=== PATIENT | female | born 1990 | race American Indian/Alaskan Native ===

== ENCOUNTER 2016-10-29 18:38 | Emergency (ER) | payer MEDICAID ==
[2016-10-29 18:45] VITALS: TEMP 98; O2SAT 100
--- NOTE | 2016-10-29 20:07 | ED PDOC ---
Lower Extremity Pain/Injury Time Seen by Provider: 10/29/16 18:52 Chief Complaint (Nursing): Lower Extremity Problem/Injury Chief Complaint (Provider): Left Knee Pain History Per: Patient History/Exam Limitations: no limitations Onset/Duration Of Symptoms: Hrs Current Symptoms Are (Timing): Still Present Severity: Severe Additional History Per: Patient Additional Complaint(s): Alexandro Renteria is a 26 year old female that presents to the ED with a chief complaint of left knee pain. Patient reports that while walking today, she felt a "pop" in her left knee, as well as has been walking with a limp due to a meniscal tear in her left knee she obtained three months ago. She reports she currently has a torn ACL as well. Of Note: Patient has ACL repair surgery 11 years ago. Past Medical History Reviewed: Historical Data, Nursing Documentation, Vital Signs Vital Signs: Last Vital Signs Temp 98.0 F 10/29/16 18:42 Pulse 132 H 10/29/16 18:42 Resp 16 10/29/16 18:42 BP 157/83 H 10/29/16 18:42 Pulse Ox 100 10/29/16 18:42 - Medical History PMH: Bipolar Disorder, Depression, Migraine Denies: HIV, HTN, Sexually Transmitted Disease - Family History Family History: States: Unknown Family Hx - Immunization History Hx Tetanus Toxoid Vaccination: No Hx Influenza Vaccination: No Hx Pneumococcal Vaccination: No - Home Medications Home Medications: Ambulatory Orders Medication Instructions Recorded FLUoxetine [Prozac] 10 mg PO DAILY #30 cap 02/03/15 QUEtiapine [SEROquel] 50 mg PO HS #30 tab 02/03/15 Famotidine [Pepcid] 20 mg PO DAILY PRN #6 tab 05/09/15 Cyclobenzaprine [Cyclobenzaprine 10 mg PO Q8 PRN #9 tab 06/11/16 HCl] traMADol [Ultram] 50 mg PO TID PRN #12 tab 06/11/16 traMADol [Ultram] 50 mg PO TID PRN #15 tab 07/11/16 traMADol [Ultram] 50 mg PO Q6H PRN #10 tab 10/29/16 - Allergies Allergies/Adverse Reactions: Allergies Allergy/AdvReac Type Severity Reaction Status Date / Time peanut Allergy ANAPHYLAXIS Verified 10/29/16 18:42 Review of Systems Musculoskeletal: Positive for: Leg Pain (left knee pain) Physical Exam - Reviewed Nursing Documentation Reviewed: Yes Vital Signs Reviewed: Yes - Physical Exam Appears: Positive for: Non-toxic, No Acute Distress Head Exam: Positive for: ATRAUMATIC, NORMOCEPHALIC Skin: Positive for: Normal Color, Warm Eye Exam: Positive for: Normal appearance, EOMI, PERRL Extremity: Positive for: Other (Patient walks with a limp due to pain in left knee). Negative for: Normal ROM (decreased ROM due to pain in left knee) Neurologic/Psych: Positive for: Alert, Oriented - ECG O2 Sat by Pulse Oximetry: 100 (RA) Pulse Ox Interpretation: Normal Medical Decision Making Medical Decision Making: Impression: Possible Meniscal Tear and ACL Tear in Left Knee Plan: * X-Ray Left Knee * Ultram 50 mg PO * Urine Preg * Reevaluation * Pt reports feeling better on re-evalution. Knee x-ray: No acute fracture or dislocation, (+) screw in tibia Scribe Attestation: Documented by Susy Ocampo, acting as a scribe for Melanie Tarango PA-C. Provider Scribe Attestation: All medical record entries made by the Scribe were at my direction and personally dictated by me. I have reviewed the chart and agree that the record accurately reflects my personal performance of the history, physical exam, medical decision making, and the department course for this patient. I have also personally directed, reviewed, and agree with the discharge instructions and disposition. Disposition - Clinical Impression Clinical Impression: Knee pain - Patient ED Disposition Is Patient to be Admitted: No Counseled Patient/Family Regarding: Diagnosis, Need For Followup, Rx Given - Disposition Referrals: [facility] [place] [Outside] Disposition: Routine/Home Disposition Time: 20:44 Condition: GOOD Prescriptions: traMADol [Ultram] 50 mg PO Q6H PRN #10 tab PRN Reason: Pain Instructions: Knee Pain (ED)
[2016-10-29 20:56] VITALS: BP 117/76; PULSE 88; RESP 18
--- NOTE | 2016-10-30 10:31 | RAD ---
PROCEDURE: Left Knee Radiographs. HISTORY: Pain. COMPARISON: None. FINDINGS: BONES: No evidence of acute displaced fracture nor dislocation. Re- demonstrated are postoperative changes related to the ACL repair. Threaded interference screw again noted within the medial aspect proximal tibial metaphysis of within the distal aspect of tibial bone tunnel. Hardware appears intact without evidence loosening or infection. JOINTS: Normal. No osteoarthritis. JOINT EFFUSION: No significant joint effusion. OTHER FINDINGS: None. IMPRESSION: No evidence of acute displaced fracture nor dislocation. Re- demonstrated are postoperative changes related to the ACL repair. Threaded interference screw again noted within the medial aspect proximal tibial metaphysis of within the distal aspect of tibial bone tunnel. Hardware appears intact without evidence loosening or infection.
== END 2016-10-29 21:01 | disposition home or self-care (01) ==
LOC: H.ER 18:38
DX: M25.562 Pain in left knee (principal); F31.9 Bipolar disorder, unspecified

== ENCOUNTER 2017-02-17 12:36 | Emergency (ER) | payer MEDICAID ==
[2017-02-17] MEDS ORDERED: Naproxen 500 MG TAB PO ONE ×2 (13:08→13:28)
--- NOTE | 2017-02-17 13:15 | ED PDOC ---
Lower Extremity Pain/Injury Time Seen by Provider: 02/17/17 12:45 Chief Complaint (Nursing): Lower Extremity Problem/Injury Chief Complaint (Provider): Left knee pain History Per: Patient History/Exam Limitations: no limitations Onset/Duration Of Symptoms: Days (3 weeks) Current Symptoms Are (Timing): Still Present Severity: Moderate Additional History Per: Patient Additional Complaint(s): The patient is a 26yo female, past medical history of multiple surgeries on left knee for torn meniscus, presents to the ED for evaluation of left knee pain for the past three weeks. Patient reports she is concerned that she may have torn her meniscus again. Patient denies any recent injury or trauma to her knee, also denies any numbness, weakness or tingling. Patient offers no additional medical complaints. Past Medical History Reviewed: Historical Data - Medical History PMH: Bipolar Disorder, Depression, Migraine Denies: HIV, HTN, Sexually Transmitted Disease - Surgical History Other surgeries: meniscus and ACL repairs or left knee - Family History Family History: States: Unknown Family Hx - Immunization History Hx Tetanus Toxoid Vaccination: No Hx Influenza Vaccination: No Hx Pneumococcal Vaccination: No - Home Medications Home Medications: Ambulatory Orders Medication Instructions Recorded FLUoxetine [Prozac] 10 mg PO DAILY #30 cap 02/03/15 QUEtiapine [SEROquel] 50 mg PO HS #30 tab 02/03/15 Famotidine [Pepcid] 20 mg PO DAILY PRN #6 tab 05/09/15 Cyclobenzaprine [Cyclobenzaprine 10 mg PO Q8 PRN #9 tab 06/11/16 HCl] traMADol [Ultram] 50 mg PO TID PRN #12 tab 06/11/16 traMADol [Ultram] 50 mg PO TID PRN #15 tab 07/11/16 traMADol [Ultram] 50 mg PO Q6H PRN #10 tab 10/29/16 Naproxen [Naprosyn] 500 mg PO BID PRN #30 tab 02/17/17 - Allergies Allergies/Adverse Reactions: Allergies Allergy/AdvReac Type Severity Reaction Status Date / Time peanut Allergy ANAPHYLAXIS Verified 10/29/16 18:42 Review of Systems Musculoskeletal: Positive for: Leg Pain (left knee pain) Neurological: Negative for: Weakness, Numbness Physical Exam - Reviewed Nursing Documentation Reviewed: Yes Vital Signs Reviewed: Yes - Physical Exam Appears: Positive for: Non-toxic, No Acute Distress Head Exam: Positive for: ATRAUMATIC, NORMAL INSPECTION, NORMOCEPHALIC Cardiovascular/Chest: Positive for: Regular Rate, Rhythm Respiratory: Negative for: Accessory Muscle Use, Respiratory Distress Extremity: Positive for: Normal ROM, Other (left knee with previous surgical scars, no crepidus noted.). Negative for: Tenderness, Deformity, Swelling Neurologic/Psych: Positive for: Alert, Oriented. Negative for: Motor/Sensory Deficits - Radiology X-Ray: Interpreted by Me (Knee x-ray) X-Ray Interpretation: Other (hardware in place; nothing acute) - Progress ED Course And Treament: Knee immobilized in immobilizer and crutches provided Pt. instructed to f/u with ortho for further evaluation. Pt. states she does have an orthopedist in [place] and she will f/u with him. Medical Decision Making Medical Decision Making: Time: 1245 Impression: Left knee pain Plan: -- XR left knee -- Naproxen 500mg PO Reassess Scribe Attestation: Documented by Maria G Avina acting as a scribe for SERG Guy Provider Attestation: All medical record entries made by the Scribe were at my direction and personally dictated by me. I have reviewed the chart and agree that the record accurately reflects my personal performance of the history, physical exam, medical decision making, and the department course for this patient. I have also personally directed, reviewed, and agree with the discharge instructions and disposition. Disposition - Clinical Impression Clinical Impression: Knee injury - Patient ED Disposition Is Patient to be Admitted: No - Disposition Referrals: [facility] [Outside] Disposition: Routine/Home Disposition Time: 13:54 Condition: STABLE Prescriptions: Naproxen [Naprosyn] 500 mg PO BID PRN #30 tab PRN Reason: Pain Instructions: Knee Immobilizer (ED), Crutch Instructions (ED) Forms: [employer] (Upper Sorbian) Print Language: MACEDONIAN
--- NOTE | 2017-02-17 15:42 | RAD ---
HISTORY: trauma COMPARISON: No prior FINDINGS: BONES: Normal. No fracture. Status post ACL repair. JOINTS: Normal. No osteoarthritis. SOFT TISSUE: Normal. OTHER FINDINGS: None . IMPRESSION: No fracture.
== END 2017-02-17 14:45 | disposition home or self-care (01) ==
LOC: H.ER 12:36
DX: S89.92XA Unspecified injury of left lower leg, initial encounter (principal)

== ENCOUNTER 2017-08-29 14:57 | Emergency (ER) | payer MEDICAID ==
[2017-08-29 15:11] VITALS: BP 136/83; PULSE 99; RESP 16; TEMP 98.3; O2SAT 100
--- NOTE | 2017-08-29 16:11 | ED PDOC ---
HPI: Skin/Bite Injury Time Seen by Provider: 08/29/17 15:20 Chief Complaint (Nursing): Abnormal Skin Integrity Past Medical History Vital Signs: Last Vital Signs Temp 98.3 F 08/29/17 15:07 Pulse 99 H 08/29/17 15:07 Resp 16 08/29/17 15:07 BP 136/83 08/29/17 15:07 Pulse Ox 100 08/29/17 15:07 - Medical History PMH: Bipolar Disorder, Depression, Migraine Denies: HIV, HTN, Sexually Transmitted Disease - Family History Family History: States: Unknown Family Hx - Immunization History Hx Tetanus Toxoid Vaccination: No Hx Influenza Vaccination: No Hx Pneumococcal Vaccination: No - Home Medications Home Medications: Ambulatory Orders Medication Instructions Recorded FLUoxetine [Prozac] 10 mg PO DAILY #30 cap 02/03/15 QUEtiapine [SEROquel] 50 mg PO HS #30 tab 02/03/15 Famotidine [Pepcid] 20 mg PO DAILY PRN #6 tab 05/09/15 Cyclobenzaprine [Cyclobenzaprine 10 mg PO Q8 PRN #9 tab 06/11/16 HCl] traMADol [Ultram] 50 mg PO TID PRN #12 tab 06/11/16 traMADol [Ultram] 50 mg PO TID PRN #15 tab 07/11/16 traMADol [Ultram] 50 mg PO Q6H PRN #10 tab 10/29/16 Naproxen [Naprosyn] 500 mg PO BID PRN #30 tab 02/17/17 Cetirizine HCl [Zyrtec] 10 mg PO DAILY #30 capsule 08/29/17 Hydrocortisone Kayley 0.2% Cr 1 applic TOP BID #1 tube 08/29/17 [Westcort] - Allergies Allergies/Adverse Reactions: Allergies Allergy/AdvReac Type Severity Reaction Status Date / Time peanut Allergy ANAPHYLAXIS Verified 10/29/16 18:42 - ECG O2 Sat by Pulse Oximetry: 100 (RA) Pulse Ox Interpretation: Normal Medical Decision Making Medical Decision Making: Time: 1520 Initial impression: Rash Initial plan: --Skin Examination Time: 1610 --Patient is medically clear for discharge and will be given Rx for Zyrtec 10 mg and westcort 0.2%. Advised to follow up with Dr. Rodger Horn MD in 1-2 days without fail. Advised to take medication as prescribed. Return to the emergency room at any time for any new or worsening symptoms. Patient states he/she fully agrees with and understands discharge instructions. States that he/she agrees with the plan and disposition. Verbalized and repeated discharge instructions and plan. I have given the patient opportunity to ask any additional questions. Clinical Impression: Contact dermatitis Scribe Attestation: Documented by Dina Baptiste, acting as a scribe for Kori Parra PA-C Provider Scribe Attestation: All medical record entries made by the Scribe were at my direction and personally dictated by me. I have reviewed the chart and agree that the record accurately reflects my personal performance of the history, physical exam, medical decision making, and the department course for this patient. I have also personally directed, reviewed, and agree with the discharge instructions and disposition. Disposition - Clinical Impression Clinical Impression: Contact dermatitis Counseled Patient/Family Regarding: Diagnosis, Need For Followup, Rx Given - Disposition Referrals: Rodger Horn MD [Staff Provider] - Disposition Time: 16:10 Condition: STABLE Additional Instructions: Thank you for letting us take care of you today. You were treated for contact dermatitis. The emergency medical care you received today was directed at your acute symptoms. If you were prescribed any medication, please fill it and take as directed. It may take several days for your symptoms to resolve. Return to the Emergency Department if your symptoms worsen, do not improve, or if you have any other problems. Please call one of the physicians/clinics you have been referred to that are listed on the Patient Visit Information form that is included in your discharge packet. Bring any paperwork you were given at discharge with you along with any medications you are taking to your follow up visit. Our treatment cannot replace ongoing medical care by a primary care provider (PCP) outside of the emergency department. Thank you for allowing the [facility] team to be part of your care today. Prescriptions: Cetirizine HCl [Zyrtec] 10 mg PO DAILY #30 capsule Hydrocortisone Kayley 0.2% Cr [Westcort] 1 applic TOP BID #1 tube Instructions: Contact Dermatitis (DC) Forms: [employer] (Mongolian), [facility] ED School/Work Excuse
--- NOTE | 2017-08-29 16:17 | ED PDOC ---
HPI: Allergic Reaction Time Seen by Provider: 08/29/17 15:20 Chief Complaint (Nursing): Abnormal Skin Integrity Chief Complaint (Provider): Abnormal Skin Integrity History Per: Patient Additional Complaint(s): 27 year old female presents to the emergency department with a complaint of a itchy rash to the left wrist and lower abdomen region. Reports she used an brady wrap and when she removed it she noticed the rash. Around the same time patient also ate shrimp although she has eaten shrimp in the past and knows she is not allergic. Denies fever, taking medication to improve symptoms, new medications, lotions, detergents, or food intake. Past Medical History Reviewed: Historical Data, Nursing Documentation, Vital Signs Vital Signs: Last Vital Signs Temp 98.3 F 08/29/17 15:07 Pulse 99 H 08/29/17 15:07 Resp 16 08/29/17 15:07 BP 136/83 08/29/17 15:07 Pulse Ox 100 08/29/17 15:07 - Medical History PMH: Bipolar Disorder, Depression, Migraine Denies: HIV, HTN, Sexually Transmitted Disease - Family History Family History: States: Unknown Family Hx - Immunization History Hx Tetanus Toxoid Vaccination: No Hx Influenza Vaccination: No Hx Pneumococcal Vaccination: No - Home Medications Home Medications: Ambulatory Orders Medication Instructions Recorded FLUoxetine [Prozac] 10 mg PO DAILY #30 cap 02/03/15 QUEtiapine [SEROquel] 50 mg PO HS #30 tab 02/03/15 Famotidine [Pepcid] 20 mg PO DAILY PRN #6 tab 05/09/15 Cyclobenzaprine [Cyclobenzaprine 10 mg PO Q8 PRN #9 tab 06/11/16 HCl] traMADol [Ultram] 50 mg PO TID PRN #12 tab 06/11/16 traMADol [Ultram] 50 mg PO TID PRN #15 tab 07/11/16 traMADol [Ultram] 50 mg PO Q6H PRN #10 tab 10/29/16 Naproxen [Naprosyn] 500 mg PO BID PRN #30 tab 02/17/17 Cetirizine HCl [Zyrtec] 10 mg PO DAILY #30 capsule 08/29/17 Hydrocortisone Kayley 0.2% Cr 1 applic TOP BID #1 tube 08/29/17 [Westcort] - Allergies Allergies/Adverse Reactions: Allergies Allergy/AdvReac Type Severity Reaction Status Date / Time peanut Allergy ANAPHYLAXIS Verified 10/29/16 18:42 Review of Systems ROS Statement: Except As Marked, All Systems Reviewed And Found Negative (As per HPI, otherwise negative) Constitutional: Negative for: Fever, Other (No new medications, lotions, detergents, or food intake. ) Skin: Positive for: Rash (Itchy rash noted to the left wrist and lower abdomen) Physical Exam - Reviewed Nursing Documentation Reviewed: Yes Vital Signs Reviewed: Yes - Physical Exam Appears: Positive for: No Acute Distress Head Exam: Positive for: NORMAL INSPECTION Skin: Positive for: Rash (Erythematous urticarial like rash to the dorsal left wrist and lower abdomen) Eye Exam: Negative for: Conjunctival injection, Other (chemosis) ENT: Positive for: Normal ENT Inspection (Mucous membranes moist), Pharynx Is ( Clear). Negative for: Sinus Pain/Drainage, Tonsillar Exudate, Other (Tongue or lip swelling) Cardiovascular/Chest: Positive for: Regular Rate, Rhythm. Negative for: Gallop , Murmur Respiratory: Positive for: Normal Breath Sounds (equally bilaterally). Negative for: Rales, Rhonchi, Stridor, Wheezing, Respiratory Distress Gastrointestinal/Abdominal: Positive for: Normal Exam, Soft. Negative for: Tenderness, Distended, Other (HSM) Lymphatic: Positive for: Normal Exam. Negative for: Adenopathy Neurologic/Psych: Positive for: Alert (Awake), Oriented (x3) - ECG O2 Sat by Pulse Oximetry: 100 (RA) Pulse Ox Interpretation: Normal Disposition - Clinical Impression Clinical Impression: Contact dermatitis - Patient ED Disposition Is Patient to be Admitted: No Counseled Patient/Family Regarding: Diagnosis, Need For Followup, Rx Given - Disposition Referrals: Rodger Horn MD [Staff Provider] - Disposition Time: 16:00 Condition: STABLE Additional Instructions: Thank you for letting us take care of you today. You were treated for contact dermatitis. The emergency medical care you received today was directed at your acute symptoms. If you were prescribed any medication, please fill it and take as directed. It may take several days for your symptoms to resolve. Return to the Emergency Department if your symptoms worsen, do not improve, or if you have any other problems. Please call one of the physicians/clinics you have been referred to that are listed on the Patient Visit Information form that is included in your discharge packet. Bring any paperwork you were given at discharge with you along with any medications you are taking to your follow up visit. Our treatment cannot replace ongoing medical care by a primary care provider (PCP) outside of the emergency department. Thank you for allowing the [facility] team to be part of your care today. Prescriptions: Cetirizine HCl [Zyrtec] 10 mg PO DAILY #30 capsule Hydrocortisone Kayley 0.2% Cr [Westcort] 1 applic TOP BID #1 tube Instructions: Contact Dermatitis (DC) Forms: [employer] (Azerbaijani), [facility] ED School/Work Excuse Medical Decision Making Medical Decision Making: Time: 1520 Initial impression: Rash, consider contact dermatitis Initial plan: --Skin Examination Time: 1610 --Patient is medically clear for discharge and will be given Rx for Zyrtec 10 mg and westcort 0.2%. Advised to follow up with Dr. Rodger Horn MD in 1-2 days without fail. Advised to take medication as prescribed. Return to the emergency room at any time for any new or worsening symptoms. Patient states she fully agrees with and understands discharge instructions. States that she agrees with the plan and disposition. Verbalized and repeated discharge instructions and plan. I have given the patient opportunity to ask any additional questions. Clinical Impression: Contact dermatitis Scribe Attestation: Documented by Dina Baptiste, acting as a scribe for Kori Parra PA-C Provider Scribe Attestation: All medical record entries made by the Scribe were at my direction and personally dictated by me. I have reviewed the chart and agree that the record accurately reflects my personal performance of the history, physical exam, medical decision making, and the department course for this patient. I have also personally directed, reviewed, and agree with the discharge instructions and disposition.
== END 2017-08-29 16:07 | disposition home or self-care (01) ==
LOC: H.ER 14:57
DX: L25.9 Unspecified contact dermatitis, unspecified cause (principal); F31.9 Bipolar disorder, unspecified

== ENCOUNTER 2017-11-14 21:02 | Emergency (ER) | payer MEDICAID ==
--- NOTE | 2017-11-14 22:21 | ED PDOC ---
HPI: Back Time Seen by Provider: 11/14/17 22:16 Chief Complaint (Nursing): Back Pain Chief Complaint (Provider): back pain History Per: Patient Additional Complaint(s): 27-year-old female presents with lower back pain 1 month status post helping her mother take a shower. Patient states he mother is obese and she helped get her into a shower about a month ago and injured her back in the process. Patient tried taking gabapentin for pain but this did not help. She denies any radiation of pain to lower extremities and denies any bowel or bladder dysfunction. Past Medical History Reviewed: Historical Data, Nursing Documentation, Vital Signs Vital Signs: Last Vital Signs Temp 99.3 F 11/14/17 21:40 Pulse 116 H 11/14/17 21:40 Resp 19 11/14/17 21:40 BP 158/115 H 11/14/17 21:40 Pulse Ox 98 11/14/17 21:40 - Medical History PMH: Bipolar Disorder, Depression, Migraine - Surgical History Other surgeries: Left knee surgery x 2 - Family History Family History: States: No Known Family Hx - Living Arrangements Living Arrangements: With Family - Social History Current smoker - smoking cessation education provided: No Alcohol: None Drugs: Denies - Home Medications Home Medications: Ambulatory Orders Medication Instructions Recorded FLUoxetine [Prozac] 10 mg PO DAILY #30 cap 02/03/15 QUEtiapine [SEROquel] 50 mg PO HS #30 tab 02/03/15 Famotidine [Pepcid] 20 mg PO DAILY PRN #6 tab 05/09/15 Cyclobenzaprine [Cyclobenzaprine 10 mg PO Q8 PRN #9 tab 06/11/16 HCl] traMADol [Ultram] 50 mg PO TID PRN #12 tab 06/11/16 traMADol [Ultram] 50 mg PO TID PRN #15 tab 07/11/16 traMADol [Ultram] 50 mg PO Q6H PRN #10 tab 10/29/16 Naproxen [Naprosyn] 500 mg PO BID PRN #30 tab 02/17/17 Cetirizine HCl [Zyrtec] 10 mg PO DAILY #30 capsule 08/29/17 Hydrocortisone Kayley 0.2% Cr 1 applic TOP BID #1 tube 08/29/17 [Westcort] Cyclobenzaprine [Cyclobenzaprine 10 mg PO TID PRN #20 tab 11/14/17 HCl] Naproxen [Naprosyn] 500 mg PO BID #20 tab 11/14/17 - Allergies Allergies/Adverse Reactions: Allergies Allergy/AdvReac Type Severity Reaction Status Date / Time peanut Allergy ANAPHYLAXIS Verified 10/29/16 18:42 Review of Systems ROS Statement: Except As Marked, All Systems Reviewed And Found Negative Constitutional: Negative for: Fever Cardiovascular: Negative for: Chest Pain Respiratory: Negative for: Cough Gastrointestinal: Negative for: Nausea, Vomiting Musculoskeletal: Positive for: Back Pain (s/p heavy lifting 1 month ago) Physical Exam - Reviewed Nursing Documentation Reviewed: Yes Vital Signs Reviewed: Yes - Physical Exam Appears: Positive for: Well, Non-toxic, No Acute Distress Skin: Positive for: Normal Color. Negative for: Rash Eye Exam: Positive for: Normal appearance Neck: Positive for: Normal Cardiovascular/Chest: Positive for: Regular Rate, Rhythm Respiratory: Positive for: Normal Breath Sounds. Negative for: Respiratory Distress Back: Positive for: Vertebral Tenderness (Midline tenderness along the lumbar spine with no step-off, negative bilateral straight leg raise). Negative for: L CVA Tenderness, R CVA Tenderness Extremity: Positive for: Normal ROM Neurologic/Psych: Positive for: Alert, Oriented, Gait (steady) - Laboratory Results Urine POC: Negative - ECG O2 Sat by Pulse Oximetry: 98 Pulse Ox Interpretation: Normal - Other Rad LS Spine x-ray X-Ray: Interpreted by Me, Viewed By Me X-Ray Interpretation: no fx, no dis Medical Decision Making Medical Decision Makin27 y/o female with low back injury Plan: Urine test IM toradol X-ray LS spine Patient is aware of x-ray results, all questions answered. Patient reports improvement pain after Toradol was given. Rx given for naprosyn and flexeril. Patient has rx for outpatient LS Spine MRI provided by PMD and she advised to obtain MRI and follow up with PMD. Disposition - Clinical Impression Clinical Impression: Back strain - Patient ED Disposition Is Patient to be Admitted: No Counseled Patient/Family Regarding: Studies Performed, Diagnosis, Need For Followup, Rx Given - Disposition Referrals: [facility] [Outside] Disposition: Routine/Home Disposition Time: 23:12 Condition: STABLE Additional Instructions: Take prescription meds as directed as needed for pain. Rest and avoid heavy lifting. Obtain MRI as soon as possible and follow up with primary doctor. Prescriptions: Cyclobenzaprine [Cyclobenzaprine HCl] 10 mg PO TID PRN #20 tab PRN Reason: Muscle Spasm Naproxen [Naprosyn] 500 mg PO BID #20 tab Instructions: Low Back Pain in Adults, Muscle Strain (DC), Back Exercises Forms: [facility] (Hungarian)
[2017-11-14 23:10] VITALS: BP 145/94; PULSE 100; RESP 20; TEMP 98.6
[2017-11-14 23:15] VITALS: O2SAT 98
--- NOTE | 2017-11-15 09:57 | RAD ---
PROCEDURE: Radiographs of the Lumbar Spine. HISTORY: trauma COMPARISON: No prior. FINDINGS: BONES: Straightened lumbar curvature. No fracture or spondylolisthesis. Vertebral body heights are within normal limits throughout. No destructive bony lesion appreciable. DISC SPACES: Mild disc height loss at L4-5 indicates degenerative disease. OTHER FINDINGS: None. IMPRESSION: Limited degenerative disc changes L4-5. Straightened lumbar curvature without fracture or spondylolisthesis apparent.
== END 2017-11-15 00:02 | disposition home or self-care (01) ==
LOC: H.ER 21:02
DX: S39.012A Strain of muscle, fascia and tendon of lower back, initial encounter (principal); X50.9XXA Other and unspecified overexertion or strenuous movements or postures, initial encounter; Y92.89 Other specified places as the place of occurrence of the external cause
CPT/HCPCS: 72100; 81025; 96372; 99283; J1885

== ENCOUNTER 2018-01-08 23:22 | Inpatient (IN) | payer MEDICAID ==
[2018-01-08 23:44] VITALS: BMI 28.3
--- NOTE | 2018-01-08 23:44 | ED PDOC ---
HPI: Psych/Substance Abuse Time Seen by Provider: 01/08/18 23:43 Chief Complaint (Nursing): Psychiatric Evaluation Chief Complaint (Provider): crisis eval History Per: Patient Additional Complaint(s): 27-year-old female with history of bipolar disorder presents to emergency department for crisis evaluation. Patient states she has been off her medications for several months and presents stating she feels suicidal. Patient does not remember the names of the meds she used to take. Her plan is to either slit her wrists or overdose on meds. Patient denies any recent cutting and denies any recent overdoses. Patient offers no acute medical complaints. PMD: none Past Medical History Reviewed: Historical Data, Nursing Documentation, Vital Signs - Medical History PMH: Bipolar Disorder, Depression - Surgical History Other surgeries: Left knee surgery - Family History Family History: States: No Known Family Hx - Living Arrangements Living Arrangements: With Family - Social History Current smoker - smoking cessation education provided: No Alcohol: None Drugs: Denies - Home Medications Home Medications: Ambulatory Orders Medication Instructions Recorded FLUoxetine [Prozac] 10 mg PO DAILY #30 cap 02/03/15 QUEtiapine [SEROquel] 50 mg PO HS #30 tab 02/03/15 Famotidine [Pepcid] 20 mg PO DAILY PRN #6 tab 05/09/15 Cyclobenzaprine [Cyclobenzaprine 10 mg PO Q8 PRN #9 tab 06/11/16 HCl] traMADol [Ultram] 50 mg PO TID PRN #12 tab 06/11/16 traMADol [Ultram] 50 mg PO TID PRN #15 tab 07/11/16 traMADol [Ultram] 50 mg PO Q6H PRN #10 tab 10/29/16 Naproxen [Naprosyn] 500 mg PO BID PRN #30 tab 02/17/17 Cetirizine HCl [Zyrtec] 10 mg PO DAILY #30 capsule 08/29/17 Hydrocortisone Kayley 0.2% Cr 1 applic TOP BID #1 tube 08/29/17 [Westcort] Cyclobenzaprine [Cyclobenzaprine 10 mg PO TID PRN #20 tab 11/14/17 HCl] Naproxen [Naprosyn] 500 mg PO BID #20 tab 11/14/17 - Allergies Allergies/Adverse Reactions: Allergies Allergy/AdvReac Type Severity Reaction Status Date / Time peanut Allergy ANAPHYLAXIS Verified 01/08/18 23:44 Review of Systems ROS Statement: Except As Marked, All Systems Reviewed And Found Negative Psych: Positive for: Depression, Suicidal ideation Physical Exam - Reviewed Nursing Documentation Reviewed: Yes Vital Signs Reviewed: Yes - Physical Exam Appears: Positive for: Well, Non-toxic, No Acute Distress Skin: Positive for: Normal Color. Negative for: Rash Eye Exam: Positive for: Normal appearance Cardiovascular/Chest: Positive for: Regular Rate, Rhythm Respiratory: Positive for: Normal Breath Sounds Gastrointestinal/Abdominal: Positive for: Soft. Negative for: Tenderness, Distended, Rebound Extremity: Positive for: Normal ROM Neurologic/Psych: Positive for: Alert, Oriented, Mood/Affect (tearful) - Laboratory Results Result Diagrams: 01/09/18 00:45 01/09/18 00:45 Urine POC: Negative - ECG O2 Sat by Pulse Oximetry: 100 Pulse Ox Interpretation: Normal - Other Rad CXR X-Ray: Interpreted by Me, Viewed By Me X-Ray Interpretation: no acute finding Medical Decision Making Medical Decision Makin27 year old female with suicidal ideation Plan: 1:1 bedside observation Crisis eval CBC CMP BAL UDS UA As per crisis counselor and psychiatrist fashion design professor Dr. Barr, patient does meet criteria for admission. Patient agrees and signed herself in. Patient is medically stable for psychiatric admission. Disposition - Clinical Impression Clinical Impression: Depression - Patient ED Disposition Is Patient to be Admitted: Yes - Disposition Disposition Time: 01:57 Condition: FAIR Forms: [employer] (Spanish) - Pt Status Changed To: Hospital Disposition Of: Inpatient - Admit Certification Admit to Inpatient:: After my assessment, the patient will require hospitalization for at least two midnights. This is because of the severity of symptoms shown, intensity of services needed, and/or the medical risk in this patient being treated as an outpatient. - POA Present On Arrival: None Results - Lab Results Lab Results: 01/09/18 01/09/18 01/09/18 00:45 00:45 00:45 WBC 8.1 RBC 4.40 Hgb 11.0 L Hct 34.5 MCV 78.5 L D MCH 25.0 L MCHC 31.8 L RDW 15.9 H Plt Count 244 MPV 10.0 Neut % (Auto) 68.0 Lymph % (Auto) 23.9 [place] % (Auto) 6.8 Eos % (Auto) 0.4 Baso % (Auto) 0.9 Neut # (Auto) 5.5 Lymph # (Auto) 1.9 [place] # (Auto) 0.6 Eos # (Auto) 0.0 Baso # (Auto) 0.1 Sodium Potassium Chloride Carbon Dioxide Anion Gap BUN Creatinine Est GFR ( Amer) Est GFR (Non-Af Amer) Random Glucose Calcium Total Bilirubin AST ALT Alkaline Phosphatase Total Protein Albumin Globulin Albumin/Globulin Ratio Urine Color Yellow Urine Clarity Cloudy Urine pH 7.0 Ur Specific [place] 1.035 H Urine Protein 30 Urine Glucose (UA) Neg Urine Ketones Negative Urine Blood Negative Urine Nitrate Negative Urine Bilirubin Negative Urine Urobilinogen 4.0 H Ur Leukocyte Esterase Trace Urine RBC (Auto) 2 Urine Microscopic WBC 1 Ur Squamous Epith Cells 6 H Urine Bacteria Rare Urine Opiates Screen Negative Urine Methadone Screen Negative Ur Barbiturates Screen Negative Ur Phencyclidine Scrn Negative Ur Amphetamines Screen Negative U Benzodiazepines Scrn Negative U Oth Cocaine Metabols Negative U Cannabinoids Screen Negative Alcohol, Quantitative 01/09/18 00:45 WBC RBC Hgb Hct MCV MCH MCHC RDW Plt Count MPV Neut % (Auto) Lymph % (Auto) [place] % (Auto) Eos % (Auto) Baso % (Auto) Neut # (Auto) Lymph # (Auto) [place] # (Auto) Eos # (Auto) Baso # (Auto) Sodium 140 Potassium 4.4 Chloride 103 Carbon Dioxide 29 Anion Gap 12 BUN 21 H Creatinine 0.7 Est GFR ( Amer) > 60 Est GFR (Non-Af Amer) > 60 Random Glucose 82 Calcium 9.2 Total Bilirubin 0.4 AST 28 ALT 23 Alkaline Phosphatase 64 Total Protein 7.7 Albumin 4.2 Globulin 3.5 Albumin/Globulin Ratio 1.2 Urine Color Urine Clarity Urine pH Ur Specific [place] Urine Protein Urine Glucose (UA) Urine Ketones Urine Blood Urine Nitrate Urine Bilirubin Urine Urobilinogen Ur Leukocyte Esterase Urine RBC (Auto) Urine Microscopic WBC Ur Squamous Epith Cells Urine Bacteria Urine Opiates Screen Urine Methadone Screen Ur Barbiturates Screen Ur Phencyclidine Scrn Ur Amphetamines Screen U Benzodiazepines Scrn U Oth Cocaine Metabols U Cannabinoids Screen Alcohol, Quantitative < 10
[2018-01-08 23:49] VITALS: O2SAT 100
[2018-01-09 00:55] LABS: BASO # 0.1 K/uL (0.0-0.2); BASO % 0.9 % (0.0-2.0); EOS % 0.4 % (0.0-4.0); LYMPH # 1.9 K/uL (1.0-4.3); LYMPH % 23.9 % (20.0-40.0); MEAN CELL VOLUME 78.5 fl (81.0-99.0); MEAN CORPUSCULAR HGB CONC 31.8 g/dL (33.0-37.0); MONO # 0.6 K/uL (0.0-0.8); MONO % 6.8 % (0.0-10.0); NEUT # 5.5 K/uL (1.8-7.0); NRBC % 0.1 % (0.0-0.0); RBC 4.4 Mil/uL (3.80-5.20); RED CELL DISTRIBUTION WIDTH 15.9 % (11.5-14.5); WHITE BLOOD COUNT 8.1 K/uL (4.8-10.8)
[2018-01-09 00:59] LABS: SQUAMOUS EPITHIAL 6 /hpf (0-5); URINE BACTERIA RARE (<OCC); URINE BILIRUBIN NEGATIVE (NEGATIVE); URINE BLOOD NEGATIVE (NEGATIVE); URINE CLARITY CLOUDY (Clear); URINE COLOR YELLOW (YELLOW); URINE GLUCOSE (UA) NEG (Normal); URINE LEUKOCYTE ESTERASE TRACE Leu/uL (Negative); URINE PROTEIN 30 mg/dL (NEGATIVE)
[2018-01-09 01:05] LABS: ALB/GLOB RATIO 1.2 (1.0-2.1); ALBUMIN 4.2 g/dL (3.5-5.0); ALT/SGPT 23 U/L (9-52); AST/SGOT 28 U/L (14-36); BLOOD UREA NITROGEN 21 mg/dl (7-17); CALCIUM 9.2 mg/dL (8.4-10.2); GFR AFRICAN-AMERICAN > 60; GFR NON-AFRICAN AMERICAN > 60
[2018-01-09 01:15] LABS: BARBITURATES, UR NEGATIVE (NEGATIVE); BENZODIAZEPINES, UR NEGATIVE (NEGATIVE); OPIATES, UR NEGATIVE (NEGATIVE); PHENCYCLIDINE, UR NEGATIVE (NEGATIVE)
[2018-01-09] MEDS ORDERED: Alum-Mag Hydrox-Simethicone Susp (30 mL) PO PRN (02:49)
[2018-01-09] MEDS ORDERED: Magnesium Hydroxide Susp 30 ml UD PO PRN (02:49)
[2018-01-09] MEDS ORDERED: DiphenhydrAMINE 50 mg/ml Inj IM PRN (02:49)
--- NOTE | 2018-01-09 03:06 | PCM.BM ---
<Marjorie Mercado P - Last Filed: 01/09/18 03:04> Treatment Plan Problems - Problems identified on initial assessmt Suicidal ideation Date Initiated: 01/09/18 Time Initiated: 03:04 Assessment reference: NA Status: Active Hopelessness/Helplessness Date Initiated: 01/09/18 Time Initiated: 03:05 Assessment reference: NA Status: Active Altered Sleep patterns Date Initiated: 01/09/18 Time Initiated: 03:05 Assessment reference: NA Status: Active Treatment assets and liabiliti Patient Assests: cooperative, motivated, ADL independent, physically healthy, negotiates basic needs, cognitively intact Patient Liabilities: financial problems, poor support system - Milieu Protocol Maintain good personal hygiene: daily Encourage regular showers, daily Remind patient to perform daily oral care, daily Assist patient to perform ADL's Conduct patient checks and document Observation sheet: Q15 minutes Maintain personal safety: every shift Educate patient to report safety concerns to staff, every shift Monitor environment for contraband/sharps Medication safety: Monitor for expected outcome, potential side effects: every shift, Assess barriers to learning: every shift, Assess readiness for medication education: every shift <Jv Lyons J - Last Filed: 01/09/18 16:32> Family Contact Family involvement: Family/SO is involved Family contact: Patient declines to allow family contact at present Family contact name: Pt refused. - Goals for Treatment Patient goals for treatment: Pt is stil ambivalent regarding treatment and reported that at times she feels like signing herself out. Discharge/Continuing Care - Education Needs Education Needs: Patient Medication, Patient Diagnosis/Disease Process, Patient Coping Skills, Patient Placement options, Patient Aftercare Safety Plan - Discharge Discharge Criteria: Tolerates medication w/o severe side effects, Free of Suicidal thoughts, Free of agitation, Normal sleep pattern, Reduction of target symptoms Discharge to:: Home, With Family - Treatment Team Participation Patient/Family/SO Statement: 01/09/18 16:34 Pt was seen in tx team and reported "I'm there" when asked how she was feelings. Pt reported she is often tired with no energy. Pt discussed her recent depression, but reported that she has a history of "ups and down." Pt reported she has a history of "risky" behavior and times of feeling really energetic. Pt reported that she used to receive treatment at [facility] and and was prescribed Seroquel XR and Prozac. Discussed with Family/SO: No Was Patient/Family/SO present at Treatment Team Meeting: Yes <Sami Berrios - Last Filed: 01/16/18 08:35> - Diagnosis (1) Depression Status: Chronic Interventions: psychotherapy, pharmacotherapy 01/16/18 08:35
--- NOTE | 2018-01-09 08:24 | CARD ---
APPROVED REPORT Date of service: 01/09/2018 <Conclusion> Normal sinus rhythm Normal ECG
--- NOTE | 2018-01-09 08:50 | RAD ---
Date of service: 01/09/2018 HISTORY: clearance COMPARISON: None available. FINDINGS: LUNGS: No active pulmonary disease. PLEURA: No significant pleural effusion identified, no pneumothorax apparent. CARDIOVASCULAR: Normal. OSSEOUS STRUCTURES: No significant abnormalities. VISUALIZED UPPER ABDOMEN: Normal. OTHER FINDINGS: None. IMPRESSION: No acute cardiopulmonary disease appreciated.
[2018-01-09 09:28] LABS: T4 6.73 ug/dl (5.5-11.0)
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
--- NOTE | 2018-01-09 17:02 | CP.PCM.CON ---
<Nadine Joshi - Last Filed: 01/09/18 16:56> History of Present Illness - History of Present Illness History of Present Illness: 27 yo F, no known chronic medical problems, psych hx PTSD and bipolar d/o as per pt, admitted to inpatient adult psychiatric unit after presenting to ED with suicidal ideation. Currently does not have any acute medical complaints. PMD: Dr. Arizmendi in [place] Past Surg hx: L knee 4 procedures age [age] due to sports injury; as per records reviewed after interview, gastric sleeve but pt did not mention this Social hx: no tobacco use, no drug use. admits to having tried to use alcohol to cope with depression before, dates last use to May 2017 OB hx: G0. LMP first week of December, unsure of date. Periods sometimes skip month. Family hx: mother and father have htn and diabetes; pt states her father claims to have bipolar d/o but she is not sure Allergies: peanut butter, peanuts On ROS, positive for having acid reflux which makes her feel nauseous and makes her cough. Pertinent negatives: no headaches, no dizziness, no chest pain, no dyspnea, no diarrhea or constipation, no dysuria, no leg edema/pain. Review of Systems - Constitutional Constitutional: As Per HPI - EENT Eyes: As Per HPI - Cardiovascular Cardiovascular: As Per HPI - Respiratory Respiratory: As Per HPI - Gastrointestinal Gastrointestinal: As Per HPI - Genitourinary Genitourinary: As Per HPI - Reproductive: Female Reproductive:Female: As Per HPI - Musculoskeletal Musculoskeletal: As Per HPI - Neurological Neurological: As Per HPI - Psychiatric Psychiatric: As Per HPI - Endocrine Endocrine: As Per HPI Past Patient History - Past Social History Alcohol: None Drugs: Denies - CARDIAC Hx Cardiac Disorders: No Hx Hypertension: No - PULMONARY Hx Respiratory Disorders: No Hx Tuberculosis: No - NEUROLOGICAL Hx Neurological Disorder: No HX Cerebrovascular Accident: No Hx Seizures: No - HEENT Other/Comment: wears glasses - RENAL Hx Chronic Kidney Disease: No - ENDOCRINE/METABOLIC Hx Endocrine Disorders: No - HEMATOLOGICAL/ONCOLOGICAL Hx Blood Disorders: No Hx Cancer: No Hx Human Immunodeficiency Virus (HIV): No - INTEGUMENTARY Hx Dermatological Problems: No - MUSCULOSKELETAL/RHEUMATOLOGICAL Hx Back Pain: Yes Other/Comment: chronic left knee pain. multiple L knee surgeries - GASTROINTESTINAL Hx Gastrointestinal Disorders: No - GENITOURINARY/GYNECOLOGICAL Hx Sexually Transmitted Disorders: No Other/Comment: irregular, painful menses - PSYCHIATRIC Hx Bipolar Disorder: Yes Hx Substance Use: No - SURGICAL HISTORY Hx Surgeries: Yes Hx Gastric Bypass Surgery: Yes (gastric sleeve) Other/Comment: left knee surgery (ACL repair) - ANESTHESIA Hx Anesthesia: Yes Hx Anesthesia Reactions: No Meds Allergies/Adverse Reactions: Allergies Allergy/AdvReac Type Severity Reaction Status Date / Time peanut Allergy ANAPHYLAXIS Verified 01/08/18 23:44 - Medications Medications: Current Medications Acetaminophen (Tylenol 325mg Tab) 650 mg PO Q4 PRN PRN Reason: pain level 4-7 Al Hydrox/Mg Hydrox/Simethicone (Maalox Plus 30 Ml) 30 ml PO Q4 PRN PRN Reason: Dyspepsia Diphenhydramine HCl (Benadryl) 50 mg IM Q6 PRN PRN Reason: Extrapyramidal S/S Unable PO Diphenhydramine HCl (Benadryl) 50 mg PO Q6 PRN PRN Reason: Extrapyramidal Symptoms Diphenhydramine HCl (Benadryl) 50 mg PO HS PRN PRN Reason: Sleep Haloperidol (Haldol) 5 mg PO Q4 PRN PRN Reason: Agitation Haloperidol Lactate (Haldol) 5 mg IM Q4 PRN PRN Reason: Agitation, Unable to Take PO Lorazepam (Ativan) 1 mg IM Q8 PRN PRN Reason: Anxiety/Agitation,Unable PO Lorazepam (Ativan) 1 mg PO Q8 PRN PRN Reason: Anxiety/Agitation Last Admin: 01/09/18 12:22 Dose: 1 mg Magnesium Hydroxide (Milk Of Magnesia) 30 ml PO HS PRN PRN Reason: Constipation Quetiapine Fumarate (Seroquel) 25 mg PO BID [facility] Quetiapine Fumarate (Seroquel) 100 mg PO HS [facility] Physical Exam - Constitutional Appears: Non-toxic, No Acute Distress - Head Exam Head Exam: NORMAL INSPECTION - Eye Exam Eye Exam: EOMI, Normal appearance - ENT Exam ENT Exam: Mucous Membranes Moist, Normal Oropharynx - Respiratory Exam Respiratory Exam: Clear to Auscultation Bilateral, NORMAL BREATHING PATTERN. absent: Wheezes, Respiratory Distress - Cardiovascular Exam Cardiovascular Exam: REGULAR RHYTHM, +S1, +S2 - GI/Abdominal Exam GI & Abdominal Exam: Normal Bowel Sounds, Soft. absent: Tenderness - Extremities Exam Extremities exam: Negative for: calf tenderness, normal capillary refill, pedal edema Additional comments: self-cut scars visible on left forearm - Neurological Exam Neurological exam: Alert, CN II-XII Intact, Normal Gait, Oriented x3 - Skin Skin Exam: Dry, Normal Color, Warm Results - Vital Signs Recent Vital Signs: Last Vital Signs Temp 97.0 F L 01/09/18 09:00 Pulse 95 H 01/09/18 09:00 Resp 18 01/09/18 09:00 BP 129/77 01/09/18 09:00 Pulse Ox 100 01/09/18 02:35 - Labs Result Diagrams: 01/09/18 00:45 01/09/18 00:45 Labs: Laboratory Results - last 24 hr 01/09/18 01/09/18 01/09/18 00:45 00:45 00:45 WBC 8.1 RBC 4.40 Hgb 11.0 L Hct 34.5 MCV 78.5 L D MCH 25.0 L MCHC 31.8 L RDW 15.9 H Plt Count 244 MPV 10.0 Neut % (Auto) 68.0 Lymph % (Auto) 23.9 Richardson % (Auto) 6.8 Eos % (Auto) 0.4 Baso % (Auto) 0.9 Neut # (Auto) 5.5 Lymph # (Auto) 1.9 Richardson # (Auto) 0.6 Eos # (Auto) 0.0 Baso # (Auto) 0.1 Sodium 140 Potassium 4.4 Chloride 103 Carbon Dioxide 29 Anion Gap 12 BUN 21 H Creatinine 0.7 Est GFR ( Amer) > 60 Est GFR (Non-Af Amer) > 60 Random Glucose 82 Hemoglobin A1c Calcium 9.2 Total Bilirubin 0.4 AST 28 ALT 23 Alkaline Phosphatase 64 Total Protein 7.7 Albumin 4.2 Globulin 3.5 Albumin/Globulin Ratio 1.2 Triglycerides Cholesterol LDL Cholesterol Direct HDL Cholesterol Thyroxine (T4) TSH 3rd Generation Urine Color Urine Clarity Urine pH Ur Specific Haven Urine Protein Urine Glucose (UA) Urine Ketones Urine Blood Urine Nitrate Urine Bilirubin Urine Urobilinogen Ur Leukocyte Esterase Urine RBC (Auto) Urine Microscopic WBC Ur Squamous Epith Cells Urine Bacteria Urine Opiates Screen Negative Urine Methadone Screen Negative Ur Barbiturates Screen Negative Ur Phencyclidine Scrn Negative Ur Amphetamines Screen Negative U Benzodiazepines Scrn Negative U Oth Cocaine Metabols Negative U Cannabinoids Screen Negative Alcohol, Quantitative < 10 08/03/18 08/03/18 08/03/18 00:45 08:37 08:37 WBC RBC Hgb Hct MCV MCH MCHC RDW Plt Count MPV Neut % (Auto) Lymph % (Auto) Richardson % (Auto) Eos % (Auto) Baso % (Auto) Neut # (Auto) Lymph # (Auto) Richardson # (Auto) Eos # (Auto) Baso # (Auto) Sodium Potassium Chloride Carbon Dioxide Anion Gap BUN Creatinine Est GFR ( Amer) Est GFR (Non-Af Amer) Random Glucose Hemoglobin A1c 5.2 Calcium Total Bilirubin AST ALT Alkaline Phosphatase Total Protein Albumin Globulin Albumin/Globulin Ratio Triglycerides 62 Cholesterol 190 LDL Cholesterol Direct 87 HDL Cholesterol 60 Thyroxine (T4) 6.73 TSH 3rd Generation 1.72 Urine Color Yellow Urine Clarity Cloudy Urine pH 7.0 Ur Specific Haven 1.035 H Urine Protein 30 Urine Glucose (UA) Neg Urine Ketones Negative Urine Blood Negative Urine Nitrate Negative Urine Bilirubin Negative Urine Urobilinogen 4.0 H Ur Leukocyte Esterase Trace Urine RBC (Auto) 2 Urine Microscopic WBC 1 Ur Squamous Epith Cells 6 H Urine Bacteria Rare Urine Opiates Screen Urine Methadone Screen Ur Barbiturates Screen Ur Phencyclidine Scrn Ur Amphetamines Screen U Benzodiazepines Scrn U Oth Cocaine Metabols U Cannabinoids Screen Alcohol, Quantitative Assessment & Plan - Assessment and Plan (Free Text) Assessment: 27 yo F with no chronic medical hx admitted to inpatient adult psychiatric unit due to suicidal ideation. Plan: - VS stable - Microcytic anemia; Hgb 11; MCV 78.5; start ferrous sulfate 325mg PO once daily - Maalox as ordered - Regular diet, adequate hydration - Ambulation - Primary management by inpatient psychiatric team <Jaxon Herzog - Last Filed: 01/15/18 22:10> Meds - Medications Medications: Current Medications Acetaminophen (Tylenol 325mg Tab) 650 mg PO Q4 PRN PRN Reason: pain level 4-7 Last Admin: 01/15/18 21:07 Dose: 650 mg Al Hydrox/Mg Hydrox/Simethicone (Maalox Plus 30 Ml) 30 ml PO Q4 PRN PRN Reason: Dyspepsia Diphenhydramine HCl (Benadryl) 50 mg IM Q6 PRN PRN Reason: Extrapyramidal S/S Unable PO Diphenhydramine HCl (Benadryl) 50 mg PO Q6 PRN PRN Reason: Extrapyramidal Symptoms Diphenhydramine HCl (Benadryl) 50 mg PO HS PRN PRN Reason: Sleep Last Admin: 01/10/18 22:53 Dose: 50 mg Ferrous Sulfate (Feosol) 325 mg PO DAILY [facility] Last Admin: 01/15/18 08:35 Dose: 325 mg Gabapentin (Neurontin) 100 mg PO TID PRN PRN Reason: Anxiety Last Admin: 01/15/18 17:21 Dose: 100 mg Haloperidol (Haldol) 5 mg PO Q4 PRN PRN Reason: Agitation Haloperidol Lactate (Haldol) 5 mg IM Q4 PRN PRN Reason: Agitation, Unable to Take PO Magnesium Hydroxide (Milk Of Magnesia) 30 ml PO HS PRN PRN Reason: Constipation Ondansetron HCl (Zofran Odt) 4 mg PO Q8H PRN PRN Reason: Nausea/Vomiting Last Admin: 01/13/18 09:24 Dose: 4 mg Pantoprazole Sodium (Protonix Ec Tab) 40 mg PO DAILY [facility] Last Admin: 01/15/18 08:35 Dose: 40 mg Prazosin HCl (Minipress) 1 mg PO HS [facility] Last Admin: 01/15/18 21:06 Dose: 1 mg Quetiapine Fumarate (Seroquel) 300 mg PO HS [facility] Last Admin: 01/15/18 21:06 Dose: 300 mg Results - Vital Signs Recent Vital Signs: Last Vital Signs Temp 97.7 F 01/15/18 09:32 Pulse 89 01/15/18 09:32 Resp 18 01/15/18 09:32 BP 124/75 01/15/18 09:32 Pulse Ox 100 01/09/18 02:35 - Labs Result Diagrams: 01/12/18 09:53 01/12/18 09:53 Assessment & Plan - Assessment and Plan (Free Text) Plan: I was present during evaluation and discussed with Dr Alexander giraldo plans of care and mgt. Jaxon Herzog M.D.
[2018-01-10] MEDS: Pantoprazole 40 mg EC Tab PO SCH (09:07)
--- NOTE | 2018-01-10 11:53 | CP.PCM.CON ---
<Charlie Kenyon - Last Filed: 01/10/18 13:54> History of Present Illness - History of Present Illness History of Present Illness: PGY6 GI Fellow Consult Note Patient is a 27 year old female with PMHx significant for prior bariatric surgery (~2006, sleeve gastrectomy per patient description), depression, PTSD, bipolar d/o who presented to the hospital for worsening depression and suicidal ideation. Our service was consulted for complaints of nausea, vomiting in the last two weeks. Patient states she has had significant increase in stress and had not been adherent to outpatient antidepressant regimens or follow up with psychiatric providers. As stress in her life mounted, she noted development of epigastric discomfort and occasional nausea and regurgitation. Nausea and regurgitation has become more frequent in the last week and she admits to early satiety and hypersalivation following oral intake. Admits to some occasional RUQ abdominal discomfort as well. Routine lab work revealed microcytic anemia. Patient denies any overt bleeding such as hematemesis, hematochezia/melena. Denies significant weight loss, change in bowel habits, sick contacts, recent antibiotic use, OTC medications and denies NSAID use. Denies any intentional overdoses. 12 system ROS performed and negative except where stated PMHx: See HPI PSHx: Suspect sleeve gastrectomy per patient report, left knee meniscus repair multiple times FHx: Mother - DM, HTN, DJD Social: Patient denies tobacco, EtOH or illicit drug use Endo: No prior endoscopic evaluations Past Patient History - Past Social History Alcohol: None Drugs: Denies - CARDIAC Hx Cardiac Disorders: No Hx Hypertension: No - PULMONARY Hx Respiratory Disorders: No Hx Tuberculosis: No - NEUROLOGICAL Hx Neurological Disorder: No HX Cerebrovascular Accident: No Hx Seizures: No - HEENT Other/Comment: wears glasses - RENAL Hx Chronic Kidney Disease: No - ENDOCRINE/METABOLIC Hx Endocrine Disorders: No - HEMATOLOGICAL/ONCOLOGICAL Hx Blood Disorders: No Hx Cancer: No Hx Human Immunodeficiency Virus (HIV): No - INTEGUMENTARY Hx Dermatological Problems: No - MUSCULOSKELETAL/RHEUMATOLOGICAL Hx Back Pain: Yes Other/Comment: chronic left knee pain. multiple L knee surgeries - GASTROINTESTINAL Hx Gastrointestinal Disorders: No - GENITOURINARY/GYNECOLOGICAL Hx Sexually Transmitted Disorders: No Other/Comment: irregular, painful menses - PSYCHIATRIC Hx Bipolar Disorder: Yes Hx Substance Use: No - SURGICAL HISTORY Hx Surgeries: Yes Hx Gastric Bypass Surgery: Yes (gastric sleeve) Other/Comment: left knee surgery (ACL repair) - ANESTHESIA Hx Anesthesia: Yes Hx Anesthesia Reactions: No Meds Allergies/Adverse Reactions: Allergies Allergy/AdvReac Type Severity Reaction Status Date / Time peanut Allergy ANAPHYLAXIS Verified 01/08/18 23:44 - Medications Medications: Current Medications Acetaminophen (Tylenol 325mg Tab) 650 mg PO Q4 PRN PRN Reason: pain level 4-7 Al Hydrox/Mg Hydrox/Simethicone (Maalox Plus 30 Ml) 30 ml PO Q4 PRN PRN Reason: Dyspepsia Diphenhydramine HCl (Benadryl) 50 mg IM Q6 PRN PRN Reason: Extrapyramidal S/S Unable PO Diphenhydramine HCl (Benadryl) 50 mg PO Q6 PRN PRN Reason: Extrapyramidal Symptoms Diphenhydramine HCl (Benadryl) 50 mg PO HS PRN PRN Reason: Sleep Ferrous Sulfate (Feosol) 325 mg PO DAILY [facility] Haloperidol (Haldol) 5 mg PO Q4 PRN PRN Reason: Agitation Haloperidol Lactate (Haldol) 5 mg IM Q4 PRN PRN Reason: Agitation, Unable to Take PO Lorazepam (Ativan) 1 mg IM Q8 PRN PRN Reason: Anxiety/Agitation,Unable PO Lorazepam (Ativan) 1 mg PO Q8 PRN PRN Reason: Anxiety/Agitation Last Admin: 01/09/18 12:22 Dose: 1 mg Magnesium Hydroxide (Milk Of Magnesia) 30 ml PO HS PRN PRN Reason: Constipation Ondansetron HCl (Zofran Odt) 4 mg PO Q8H PRN PRN Reason: Nausea/Vomiting Last Admin: 01/10/18 09:06 Dose: 4 mg Pantoprazole Sodium (Protonix Ec Tab) 40 mg PO DAILY [facility] Last Admin: 01/10/18 09:07 Dose: 40 mg Quetiapine Fumarate (Seroquel) 25 mg PO BID [facility] Last Admin: 01/10/18 09:07 Dose: 25 mg Quetiapine Fumarate (Seroquel) 100 mg PO HS [facility] Last Admin: 01/09/18 21:12 Dose: 100 mg Physical Exam - Constitutional Appears: Non-toxic, No Acute Distress - Eye Exam Eye Exam: EOMI, PERRL - ENT Exam ENT Exam: Mucous Membranes Moist - Respiratory Exam Respiratory Exam: Clear to Auscultation Bilateral. absent: Rales, Rhonchi, Wheezes - Cardiovascular Exam Cardiovascular Exam: RRR, +S1, +S2 - GI/Abdominal Exam GI & Abdominal Exam: Normal Bowel Sounds, Soft, Tenderness (RUQ). absent: Distended, Firm, Guarding, Organomegaly, Rigid - Extremities Exam Extremities exam: Positive for: normal inspection. Negative for: pedal edema - Neurological Exam Neurological exam: Alert, Oriented x3 - Psychiatric Exam Psychiatric exam: Anxious - Skin Skin Exam: Dry, Warm Results - Vital Signs Recent Vital Signs: Last Vital Signs Temp 97.3 F L 01/10/18 09:46 Pulse 105 H 01/10/18 09:46 Resp 20 01/10/18 09:46 BP 117/79 01/10/18 09:46 Pulse Ox 100 01/09/18 02:35 - Labs Result Diagrams: 01/09/18 00:45 01/09/18 00:45 Labs: Laboratory Results - last 24 hr 01/09/18 01/09/18 08:37 08:37 Hemoglobin A1c 5.2 RPR Nonreactive Assessment & Plan - Assessment and Plan (Free Text) Assessment: Patient is a 27 year old female with PMHx significant for prior bariatric surgery (~2006, sleeve gastrectomy per patient description), depression, PTSD, bipolar d/o who presented to the hospital for worsening depression and suicidal ideation. Our service was consulted for complaints of nausea, vomiting in the last two weeks -Suicidal ideation but denies any intentional self-harm -Microcytic anemia -Dyspepsia -Regurgitation -RUQ abdominal pain Plan: -Recommend continuation of Pantoprazole 40mg PO QAMAC which was initiated this morning by primary team -Check U/S RUQ given abdominal discomfort and RUQ tenderness on palpation, R/O cholelithiasis and biliary colic as etiology of discomfort -Check urine hCG -Lab work reveals microcytic anemia - no evidence of acute GI bleeding -Check iron/TIBC/ferritin, monitor CBC -UDS and EtOH screen unremarkable -No plan for endoscopic evaluation at this juncture but may benefit from outpatient work up once acute issues resolve Case discussed with GI attending, Dr Salgado - Date & Time Date: 01/10/18 Time: 11:30 <Duc Salgado - Last Filed: 01/10/18 18:47> Meds - Medications Medications: Current Medications Acetaminophen (Tylenol 325mg Tab) 650 mg PO Q4 PRN PRN Reason: pain level 4-7 Al Hydrox/Mg Hydrox/Simethicone (Maalox Plus 30 Ml) 30 ml PO Q4 PRN PRN Reason: Dyspepsia Diphenhydramine HCl (Benadryl) 50 mg IM Q6 PRN PRN Reason: Extrapyramidal S/S Unable PO Diphenhydramine HCl (Benadryl) 50 mg PO Q6 PRN PRN Reason: Extrapyramidal Symptoms Diphenhydramine HCl (Benadryl) 50 mg PO HS PRN PRN Reason: Sleep Ferrous Sulfate (Feosol) 325 mg PO DAILY [facility] Last Admin: 01/10/18 17:33 Dose: 325 mg Gabapentin (Neurontin) 100 mg PO TID PRN PRN Reason: Anxiety Haloperidol (Haldol) 5 mg PO Q4 PRN PRN Reason: Agitation Haloperidol Lactate (Haldol) 5 mg IM Q4 PRN PRN Reason: Agitation, Unable to Take PO Lorazepam (Ativan) 1 mg PO Q8 PRN PRN Reason: Anxiety/Agitation Last Admin: 01/09/18 12:22 Dose: 1 mg Magnesium Hydroxide (Milk Of Magnesia) 30 ml PO HS PRN PRN Reason: Constipation Ondansetron HCl (Zofran Odt) 4 mg PO Q8H PRN PRN Reason: Nausea/Vomiting Last Admin: 01/10/18 09:06 Dose: 4 mg Pantoprazole Sodium (Protonix Ec Tab) 40 mg PO DAILY [facility] Last Admin: 01/10/18 09:07 Dose: 40 mg Prazosin HCl (Minipress) 1 mg PO HS [facility] Quetiapine Fumarate (Seroquel) 25 mg PO BID [facility] Last Admin: 01/10/18 17:33 Dose: 25 mg Quetiapine Fumarate (Seroquel) 200 mg PO HS [facility] Results - Vital Signs Recent Vital Signs: Last Vital Signs Temp 97.3 F L 01/10/18 09:46 Pulse 105 H 01/10/18 09:46 Resp 20 01/10/18 09:46 BP 117/79 01/10/18 09:46 Pulse Ox 100 01/09/18 02:35 - Labs Result Diagrams: 01/09/18 00:45 01/09/18 00:45 Labs: Laboratory Results - last 24 hr 01/09/18 01/10/18 01/10/18 08:37 12:04 12:04 Iron 32 L TIBC 474 H % Saturation 7 L Ferritin 7.4 RPR Nonreactive Assessment & Plan - Assessment and Plan (Free Text) Plan: Chart reviewed. The pt was interviewed and examined this evening. Comfortable. Ambulating. Reported having postprandial nausea earlier today. + Vickers's on exam. Normal liver chemistry, ALT, bili, WBC. Iron deficiency anemia. Agree with Dr. Kenyon's assessment and plan as outlined above. Will follow US results and stool hemocult. May need outpatient EGD.
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
[2018-01-10 14:55] LABS: IRON 32 ug/dL (37-170)
[2018-01-10 15:04] LABS: % IRON SATURATION 7 % (20-55); TOTAL IRON BINDING CAPACITY 474 ug/dL (250-450)
--- NOTE | 2018-01-11 11:44 | US ---
Date of service: 01/11/2018 HISTORY: RUQ pain COMPARISON: None. TECHNIQUE: Sonographic evaluation of the abdomen. FINDINGS: LIVER: Measures cm. Normal echogenicity of the liver parenchyma. No mass. No intrahepatic bile duct dilatation. GALLBLADDER: Unremarkable. No gallstones. COMMON BILE DUCT: Measures mm. No stones. No dilatation. PANCREAS: Unremarkable as visualized. No mass. No ductal dilatation. RIGHT KIDNEY: Measures cm. Normal echogenicity. No calculus, mass, or hydronephrosis. LEFT KIDNEY: Measures cm. Normal echogenicity. No calculus, mass, or hydronephrosis. SPLEEN: Normal in size and contour. No mass. AORTA: No aneurysmal dilatation. IVC: Unremarkable. OTHER FINDINGS: None. IMPRESSION: Unremarkable abdominal sonogram.
--- NOTE | 2018-01-11 12:10 | CP.PCM.PN ---
<Charlie Kenyon - Last Filed: 01/11/18 12:08> Subjective - Date & Time of Evaluation Date of Evaluation: 01/11/18 Time of Evaluation: 11:30 - Subjective Subjective: PGY6 GI Fellow Progress Note Patient seen and examined today on the psychiatric unit. Patient states that she is feeling better today but did note some discomfort during her ultrasound which took place this morning. Did not sleep well and feels fatigued as a result. No nausea, vomiting. Does admit to very heavy menstruation with passage of large clots, also stating periods are irregular in timing. 12 system ROS performed and negative except where stated Objective - Vital Signs/Intake and Output Vital Signs (last 24 hours): Temp Pulse Resp BP Pulse Ox 97.9 F 86 18 115/62 100 01/11/18 09:33 01/11/18 09:33 01/11/18 09:33 01/11/18 09:33 01/09/18 02:35 - Medications Medications: Current Medications Acetaminophen (Tylenol 325mg Tab) 650 mg PO Q4 PRN PRN Reason: pain level 4-7 Al Hydrox/Mg Hydrox/Simethicone (Maalox Plus 30 Ml) 30 ml PO Q4 PRN PRN Reason: Dyspepsia Diphenhydramine HCl (Benadryl) 50 mg IM Q6 PRN PRN Reason: Extrapyramidal S/S Unable PO Diphenhydramine HCl (Benadryl) 50 mg PO Q6 PRN PRN Reason: Extrapyramidal Symptoms Diphenhydramine HCl (Benadryl) 50 mg PO HS PRN PRN Reason: Sleep Last Admin: 01/10/18 22:53 Dose: 50 mg Ferrous Sulfate (Feosol) 325 mg PO DAILY KATIE Last Admin: 01/10/18 17:33 Dose: 325 mg Gabapentin (Neurontin) 100 mg PO TID PRN PRN Reason: Anxiety Haloperidol (Haldol) 5 mg PO Q4 PRN PRN Reason: Agitation Haloperidol Lactate (Haldol) 5 mg IM Q4 PRN PRN Reason: Agitation, Unable to Take PO Lorazepam (Ativan) 1 mg PO Q8 PRN PRN Reason: Anxiety/Agitation Last Admin: 01/09/18 12:22 Dose: 1 mg Magnesium Hydroxide (Milk Of Magnesia) 30 ml PO HS PRN PRN Reason: Constipation Ondansetron HCl (Zofran Odt) 4 mg PO Q8H PRN PRN Reason: Nausea/Vomiting Last Admin: 01/10/18 09:06 Dose: 4 mg Pantoprazole Sodium (Protonix Ec Tab) 40 mg PO DAILY [facility] Last Admin: 01/10/18 09:07 Dose: 40 mg Prazosin HCl (Minipress) 1 mg PO HS [facility] Last Admin: 01/10/18 21:03 Dose: 1 mg Quetiapine Fumarate (Seroquel) 25 mg PO BID [facility] Last Admin: 01/10/18 17:33 Dose: 25 mg Quetiapine Fumarate (Seroquel) 200 mg PO HS [facility] Last Admin: 01/10/18 21:03 Dose: 200 mg - Labs Labs: 01/09/18 00:45 01/09/18 00:45 - Constitutional Appears: Non-toxic, No Acute Distress - Eye Exam Eye Exam: EOMI, PERRL - ENT Exam ENT Exam: Mucous Membranes Moist - Respiratory Exam Respiratory Exam: Clear to Ausculation Bilateral. absent: Rales, Rhonchi, Wheezes - Cardiovascular Exam Cardiovascular Exam: RRR, +S1, +S2 - GI/Abdominal Exam GI & Abdominal Exam: Soft, Tenderness (epigastric/RUQ, mild), Normal Bowel Sounds. absent: Distended, Firm, Guarding, Rigid, Organomegaly - Extremities Exam Extremities Exam: Normal Inspection. absent: Pedal Edema - Neurological Exam Neurological Exam: Alert, Awake, Oriented x3 - Psychiatric Exam Psychiatric exam: Normal Affect, Normal Mood - Skin Skin Exam: Dry, Warm Assessment and Plan - Assessment and Plan (Free Text) Assessment: Patient is a 27 year old female with PMHx significant for prior bariatric surgery (~2006, sleeve gastrectomy per patient description), depression, PTSD, bipolar d/o who presented to the hospital for worsening depression and suicidal ideation. Our service was consulted for complaints of nausea, vomiting in the last two weeks -Suicidal ideation but denies any intentional self-harm -Microcytic iron deficiency anemia -Dyspepsia -Regurgitation, no episodes during admission -Abdominal pain Plan: -U/S reviewed and unremarkable for gallstones or other obvious lesions -Symptoms improved -Iron panel noted - ADRYAN; on Ferrous sulfate daily, could consider IV iron supplementation if possible -Continue PPI therapy - Pantoprazole 40mg PO QAMAC and would maintain for 6-8 weeks -Urine hCG ordered -May benefit from gynecologic evaluation given menometororrhagia and ADRYAN -No plan for endoscopic evaluation at this juncture but encourage outpatient follow up and consideration of EGD if symptoms do not improve/ADRYAN persists Case discussed with GI attending, Dr Salgado <Duc Salgado - Last Filed: 01/11/18 14:59> Objective - Vital Signs/Intake and Output Vital Signs (last 24 hours): Temp Pulse Resp BP Pulse Ox 97.9 F 86 18 115/62 100 01/11/18 09:33 01/11/18 09:33 01/11/18 09:33 01/11/18 09:33 01/09/18 02:35 - Medications Medications: Current Medications Acetaminophen (Tylenol 325mg Tab) 650 mg PO Q4 PRN PRN Reason: pain level 4-7 Al Hydrox/Mg Hydrox/Simethicone (Maalox Plus 30 Ml) 30 ml PO Q4 PRN PRN Reason: Dyspepsia Diphenhydramine HCl (Benadryl) 50 mg IM Q6 PRN PRN Reason: Extrapyramidal S/S Unable PO Diphenhydramine HCl (Benadryl) 50 mg PO Q6 PRN PRN Reason: Extrapyramidal Symptoms Diphenhydramine HCl (Benadryl) 50 mg PO HS PRN PRN Reason: Sleep Last Admin: 01/10/18 22:53 Dose: 50 mg Ferrous Sulfate (Feosol) 325 mg PO DAILY [facility] Last Admin: 01/11/18 12:22 Dose: 325 mg Gabapentin (Neurontin) 100 mg PO TID PRN PRN Reason: Anxiety Haloperidol (Haldol) 5 mg PO Q4 PRN PRN Reason: Agitation Haloperidol Lactate (Haldol) 5 mg IM Q4 PRN PRN Reason: Agitation, Unable to Take PO Lorazepam (Ativan) 1 mg PO Q8 PRN PRN Reason: Anxiety/Agitation Last Admin: 01/09/18 12:22 Dose: 1 mg Magnesium Hydroxide (Milk Of Magnesia) 30 ml PO HS PRN PRN Reason: Constipation Ondansetron HCl (Zofran Odt) 4 mg PO Q8H PRN PRN Reason: Nausea/Vomiting Last Admin: 01/10/18 09:06 Dose: 4 mg Pantoprazole Sodium (Protonix Ec Tab) 40 mg PO DAILY [facility] Last Admin: 01/11/18 12:22 Dose: 40 mg Prazosin HCl (Minipress) 1 mg PO HS [facility] Last Admin: 01/10/18 21:03 Dose: 1 mg Quetiapine Fumarate (Seroquel) 300 mg PO HS [facility] - Labs Labs: 01/09/18 00:45 01/09/18 00:45 Attending/Attestation - Attestation I have personally seen and examined this patient.: Yes I have fully participated in the care of the patient.: Yes I have reviewed all pertinent clinical information, including history, physical exam and plan: Yes Notes (Text): 01/11/18 14:49 Chart and labs reviewed. Pt interviewed and examined. US of the liver report noted. Pt feels better today. Mild tenderness in RUQ on exam, otherwise normal abdomen. Tolerating regular diet. Agree with Dr. Kenyon's assessment and plan. Recommendations were also discussed with the patient. Total Bilirubin 0.4 mg/dl (0.2-1.3) 01/09/18 00:45 AST 28 U/L (14-36) 01/09/18 00:45 ALT 23 U/L (9-52) 01/09/18 00:45 Alkaline Phosphatase 64 U/L (38-126) 01/09/18 00:45 Temp Pulse Resp BP Pulse Ox 97.9 F 86 18 115/62 100 01/11/18 09:33 01/11/18 09:33 01/11/18 09:33 01/11/18 09:33 01/09/18 02:35
[2018-01-11] MEDS: Pantoprazole 40 mg EC Tab PO SCH (12:22)
--- NOTE | 2018-01-11 13:42 | PCM.PYCHPN ---
Psychiatric Progress Note - Psychiatric Progress Note Patient seen today, length of contact: pt evaluated discussed with team chart reviewed Patient Chief Complaint: I need to set limits with my family Problems Identified/Issues Discussed: pt evaluated, continues to be tearful and depressed, having a conflicting relation with her mother and her brothers, pt reported she now understands she needs to set limits in the relation and look for her own goals, as she was enmeshed with her mother needs , continues to feel edgy and irritable, discussed increasing seroquel CBT provided pt denied any current perceptual disturbances, denied active suicidal thoughts on the unit Medical Problems: hx of one hospitalization, currently non compliant with treatment DSM 5 Symptoms Update: bipolar disorder depressed PTSD Medication Change: Yes (increase seroquel) Medical Record Reviewed: Yes Mental Status Examination - Cognitive Function Orientation: Person, Place, Situation, Time Memory: Intact Attention: WNL Concentration: WNL Association: WNL Fund of Knowledge: [facility] Decription of patient's judgement and insights: partial insight poor impulse control - Mood Mood: Depressed, Anxious - Affect Affect: Constricted, Depressed - Speech Speech: Soft - Formal Thought Process Formal Thought Process: Circumstantial Psychotic Thoughts and Behaviors: pt denied perceptual disturbances, non elicited - Suicidal Ideation Suicidal Ideation: No - Homicidal Ideation Homicidal Ideation: No Goal/Treatment Plan - Goal/Treatment Plan Need for Continued Stay: Discharge may exacerbated symptoms, Failed transitioning Progress Toward Problem(s) and Goals/Treatment Plan: increase seroquel 300mg qhs neurontin 100mg tid prn for anxiety prazosin 0.1mg qhs for PTSD symptoms monitor for psychopharmacological effects and side effect profile CBT group and supportive therapy
[2018-01-12] MEDS: Pantoprazole 40 mg EC Tab PO SCH (08:24)
[2018-01-12 09:59] LABS: HEMOGLOBIN 11.1 g/dL (12.0-16.0); MEAN CELL VOLUME 78.8 fl (81.0-99.0); MEAN CORPUSCULAR HEMOGLOBIN 25.6 pg (27.0-31.0); MEAN CORPUSCULAR HGB CONC 32.5 g/dL (33.0-37.0); RBC 4.34 Mil/uL (3.80-5.20); RED CELL DISTRIBUTION WIDTH 16.1 % (11.5-14.5)
[2018-01-12 10:22] LABS: BLOOD UREA NITROGEN 16 mg/dl (7-17); CALCIUM 9.1 mg/dL (8.4-10.2); GFR AFRICAN-AMERICAN > 60; GFR NON-AFRICAN AMERICAN > 60
--- NOTE | 2018-01-12 15:48 | PCM.PYCHPN ---
Psychiatric Progress Note - Psychiatric Progress Note Patient seen today, length of contact: pt evaluated discussed with team chart reviewed Patient Chief Complaint: I am trying to journal my feelings Problems Identified/Issues Discussed: pt evaluated, reported feeling less depressed,related that to being able to express her feelings in art therapy and through journaling, pt continues to have conflicting emotions about her relation with her mother , CBT provided discussed with pt more healthy coping skills with stress other than self harm, no reported side effects of medications pt denied any current perceptual disturbances, denied active suicidal thoughts on the unit Medical Problems: hx of one hospitalization, currently non compliant with treatment DSM 5 Symptoms Update: bipolar depressed borderline personality Medication Change: No Medical Record Reviewed: Yes Mental Status Examination - Cognitive Function Orientation: Person, Place, Situation, Time Memory: Intact Attention: WNL Concentration: WNL Association: WNL Fund of Knowledge: [facility] Decription of patient's judgement and insights: partial insight poor impulse control - Mood Mood: Depressed, Anxious - Affect Affect: Constricted, Depressed - Speech Speech: Soft - Formal Thought Process Formal Thought Process: Circumstantial Psychotic Thoughts and Behaviors: pt denied perceptual disturbances, non elicited - Suicidal Ideation Suicidal Ideation: No - Homicidal Ideation Homicidal Ideation: No Goal/Treatment Plan - Goal/Treatment Plan Need for Continued Stay: Discharge may exacerbated symptoms, Failed transitioning Progress Toward Problem(s) and Goals/Treatment Plan: continue with seroquel 300mg qhs neurontin 100mg tid prn for anxiety prazosin 0.1mg qhs for PTSD symptoms monitor for psychopharmacological effects and side effect profile CBT group and supportive therapy
[2018-01-13] MEDS: Pantoprazole 40 mg EC Tab PO SCH (09:24)
--- NOTE | 2018-01-13 11:06 | CP.PCM.PN ---
<Alanis Joshia - Last Filed: 01/13/18 11:03> Subjective - Date & Time of Evaluation Date of Evaluation: 01/13/18 Time of Evaluation: 10:00 - Subjective Subjective: Pt seen this morning with Dr. Herzog; reports she is feeling better and is able to keep food down. No dizziness, headaches, palpitations; is currently menstruating, reports that she has cramps. Objective - Vital Signs/Intake and Output Vital Signs (last 24 hours): Temp Pulse Resp BP Pulse Ox 97.0 F L 93 H 20 141/65 100 01/13/18 09:46 01/12/18 16:55 01/12/18 16:55 01/12/18 16:55 01/09/18 02:35 - Medications Medications: Current Medications Acetaminophen (Tylenol 325mg Tab) 650 mg PO Q4 PRN PRN Reason: pain level 4-7 Last Admin: 01/13/18 09:46 Dose: 650 mg Al Hydrox/Mg Hydrox/Simethicone (Maalox Plus 30 Ml) 30 ml PO Q4 PRN PRN Reason: Dyspepsia Diphenhydramine HCl (Benadryl) 50 mg IM Q6 PRN PRN Reason: Extrapyramidal S/S Unable PO Diphenhydramine HCl (Benadryl) 50 mg PO Q6 PRN PRN Reason: Extrapyramidal Symptoms Diphenhydramine HCl (Benadryl) 50 mg PO HS PRN PRN Reason: Sleep Last Admin: 01/10/18 22:53 Dose: 50 mg Ferrous Sulfate (Feosol) 325 mg PO DAILY [facility] Last Admin: 01/13/18 09:24 Dose: 325 mg Gabapentin (Neurontin) 100 mg PO TID PRN PRN Reason: Anxiety Last Admin: 01/12/18 08:24 Dose: 100 mg Haloperidol (Haldol) 5 mg PO Q4 PRN PRN Reason: Agitation Haloperidol Lactate (Haldol) 5 mg IM Q4 PRN PRN Reason: Agitation, Unable to Take PO Lorazepam (Ativan) 1 mg PO Q8 PRN PRN Reason: Anxiety/Agitation Last Admin: 01/09/18 12:22 Dose: 1 mg Magnesium Hydroxide (Milk Of Magnesia) 30 ml PO HS PRN PRN Reason: Constipation Ondansetron HCl (Zofran Odt) 4 mg PO Q8H PRN PRN Reason: Nausea/Vomiting Last Admin: 01/13/18 09:24 Dose: 4 mg Pantoprazole Sodium (Protonix Ec Tab) 40 mg PO DAILY [facility] Last Admin: 01/13/18 09:24 Dose: 40 mg Prazosin HCl (Minipress) 1 mg PO HS [facility] Last Admin: 01/12/18 21:02 Dose: 1 mg Quetiapine Fumarate (Seroquel) 300 mg PO [facility] Last Admin: 01/12/18 21:02 Dose: 300 mg - Labs Labs: 01/12/18 09:53 01/12/18 09:53 - Constitutional Appears: No Acute Distress - Head Exam Head Exam: NORMAL INSPECTION - Eye Exam Eye Exam: Normal appearance - ENT Exam ENT Exam: Mucous Membranes Moist - Respiratory Exam Respiratory Exam: NORMAL BREATHING PATTERN - Cardiovascular Exam Cardiovascular Exam: REGULAR RHYTHM - Extremities Exam Extremities Exam: Normal Inspection - Neurological Exam Neurological Exam: Alert, Awake, Oriented x3 - Psychiatric Exam Psychiatric exam: Normal Mood Assessment and Plan (1) Iron deficiency anemia Status: Acute (2) Dyspepsia Status: Acute (3) Mental health disorder Status: Chronic - Assessment and Plan (Free Text) Plan: - labs reviewed; iron deficiency anemia; on oral supplementation, asymptomatic. Recommend continuing oral ferrous sulfate 325 mg daily after discharge. - protonix for dyspensia - tylenol for menstrual cramps - primary inpt psych management by psychiatry team <Jaxon Herzog - Last Filed: 01/15/18 22:11> Objective - Vital Signs/Intake and Output Vital Signs (last 24 hours): Temp Pulse Resp BP Pulse Ox 97.7 F 89 18 124/75 100 01/15/18 09:32 01/15/18 09:32 01/15/18 09:32 01/15/18 09:32 01/09/18 02:35 - Medications Medications: Current Medications Acetaminophen (Tylenol 325mg Tab) 650 mg PO Q4 PRN PRN Reason: pain level 4-7 Last Admin: 01/15/18 21:07 Dose: 650 mg Al Hydrox/Mg Hydrox/Simethicone (Maalox Plus 30 Ml) 30 ml PO Q4 PRN PRN Reason: Dyspepsia Diphenhydramine HCl (Benadryl) 50 mg IM Q6 PRN PRN Reason: Extrapyramidal S/S Unable PO Diphenhydramine HCl (Benadryl) 50 mg PO Q6 PRN PRN Reason: Extrapyramidal Symptoms Diphenhydramine HCl (Benadryl) 50 mg PO HS PRN PRN Reason: Sleep Last Admin: 01/10/18 22:53 Dose: 50 mg Ferrous Sulfate (Feosol) 325 mg PO DAILY [facility] Last Admin: 01/15/18 08:35 Dose: 325 mg Gabapentin (Neurontin) 100 mg PO TID PRN PRN Reason: Anxiety Last Admin: 01/15/18 17:21 Dose: 100 mg Haloperidol (Haldol) 5 mg PO Q4 PRN PRN Reason: Agitation Haloperidol Lactate (Haldol) 5 mg IM Q4 PRN PRN Reason: Agitation, Unable to Take PO Magnesium Hydroxide (Milk Of Magnesia) 30 ml PO HS PRN PRN Reason: Constipation Ondansetron HCl (Zofran Odt) 4 mg PO Q8H PRN PRN Reason: Nausea/Vomiting Last Admin: 01/13/18 09:24 Dose: 4 mg Pantoprazole Sodium (Protonix Ec Tab) 40 mg PO DAILY [facility] Last Admin: 01/15/18 08:35 Dose: 40 mg Prazosin HCl (Minipress) 1 mg PO HS [facility] Last Admin: 01/15/18 21:06 Dose: 1 mg Quetiapine Fumarate (Seroquel) 300 mg PO HS [facility] Last Admin: 01/15/18 21:06 Dose: 300 mg - Labs Labs: 01/12/18 09:53 01/12/18 09:53 Assessment and Plan - Assessment and Plan (Free Text) Plan: I was present during evaluation and discussed with Dr Alexander giraldo plans of care and mgt. Jaxon Herzog M.D.
[2018-01-13 13:17] VITALS: RESP 18
--- NOTE | 2018-01-13 15:18 | PCM.PYCHPN ---
Psychiatric Progress Note - Psychiatric Progress Note Patient seen today, length of contact: pt evaluated discussed with team chart reviewed Patient Chief Complaint: I need to think about my future Problems Identified/Issues Discussed: pt evaluated, reported feeling less depressed,presenting with brighter affect, more visible on the unit and more interactive with other peers pt continues to have conflicting emotions about her relation with her mother , discussed with pt the diagnosis of borderline personality disorder CBT provided discussed with pt more healthy coping skills with stress other than self harm, no reported side effects of medications pt denied any current perceptual disturbances, denied active suicidal thoughts on the unit Medical Problems: hx of one hospitalization, currently non compliant with treatment DSM 5 Symptoms Update: borderline personality disorder bipolar disorder Medication Change: No Medical Record Reviewed: Yes Mental Status Examination - Cognitive Function Orientation: Person, Place, Situation, Time Memory: Intact Attention: WNL Concentration: WNL Association: WNL Fund of Knowledge: WNL Decription of patient's judgement and insights: partial insight poor impulse control - Mood Mood: Depressed, Anxious - Affect Affect: Constricted, Depressed - Speech Speech: Soft - Formal Thought Process Formal Thought Process: Circumstantial Psychotic Thoughts and Behaviors: pt denied perceptual disturbances, non elicited - Suicidal Ideation Suicidal Ideation: No - Homicidal Ideation Homicidal Ideation: No Goal/Treatment Plan - Goal/Treatment Plan Need for Continued Stay: Discharge may exacerbated symptoms, Failed transitioning Progress Toward Problem(s) and Goals/Treatment Plan: continue with seroquel 300mg qhs neurontin 100mg tid prn for anxiety prazosin 0.1mg qhs for PTSD symptoms monitor for psychopharmacological effects and side effect profile CBT group and supportive therapy
[2018-01-14] MEDS: Pantoprazole 40 mg EC Tab PO SCH (09:43)
--- NOTE | 2018-01-14 15:57 | PCM.PYCHPN ---
Psychiatric Progress Note - Psychiatric Progress Note Patient seen today, length of contact: pt evaluated discussed with team chart reviewed Patient Chief Complaint: I feel better today Problems Identified/Issues Discussed: pt evaluated, reported better mood, affect less depressed,presenting with brighter affect, more visible on the unit and more interactive with other peers pt rep[orted improved sleep and appetite pt continues to have conflicting emotions about her relation with her mother , CBT provided discussed with pt more healthy coping skills with stress other than self harm, also discussed starting DBT on discharge no reported side effects of medications pt denied any current perceptual disturbances, denied active suicidal thoughts on the unit Medical Problems: hx of one hospitalization, currently non compliant with treatment DSM 5 Symptoms Update: borderline personality disorder PTSD Medication Change: No Medical Record Reviewed: Yes Mental Status Examination - Cognitive Function Orientation: Person, Place, Situation, Time Memory: Intact Attention: WNL Concentration: WNL Association: WNL Fund of Knowledge: [facility] Decription of patient's judgement and insights: partial insight poor impulse control - Mood Mood: Anxious - Affect Affect: Constricted, Depressed - Speech Speech: Appropriate - Formal Thought Process Formal Thought Process: Circumstantial Psychotic Thoughts and Behaviors: pt denied perceptual disturbances, non elicited - Suicidal Ideation Suicidal Ideation: No - Homicidal Ideation Homicidal Ideation: No Goal/Treatment Plan - Goal/Treatment Plan Need for Continued Stay: Discharge may exacerbated symptoms, Failed transitioning Progress Toward Problem(s) and Goals/Treatment Plan: continue with seroquel 300mg qhs neurontin 100mg tid prn for anxiety prazosin 0.1mg qhs for PTSD symptoms monitor for psychopharmacological effects and side effect profile CBT group and supportive therapy
[2018-01-15] MEDS: Pantoprazole 40 mg EC Tab PO SCH (08:35)
[2018-01-15 09:32] VITALS: BP 124/75; PULSE 89; TEMP 97.7
--- NOTE | 2018-01-15 14:34 | PCM.PYCHPN ---
Psychiatric Progress Note - Psychiatric Progress Note Patient seen today, length of contact: pt evaluated discussed with team chart reviewed Patient Chief Complaint: I am anxious about leaving Problems Identified/Issues Discussed: pt evaluated, reported better mood, affect less depressed,presenting with brighter affect,feeling anxious about being discharged CBT provided, discussing with pt coping skills with anxiety and possible stressors on the outside pt more visible on the unit and more interactive with other peers,reported improved sleep and appetite discussed starting DBT on discharge no reported side effects of medications pt denied any current perceptual disturbances, denied active suicidal thoughts on the unit Medical Problems: hx of one hospitalization, currently non compliant with treatment DSM 5 Symptoms Update: borderline personality disorder PTSD Medication Change: No Medical Record Reviewed: Yes Mental Status Examination - Cognitive Function Orientation: Person, Place, Situation, Time Memory: Intact Attention: WNL Concentration: WNL Association: WNL Fund of Knowledge: [facility] Decription of patient's judgement and insights: partial insight poor impulse control - Mood Mood: Anxious - Affect Affect: Constricted, Depressed - Speech Speech: Appropriate - Formal Thought Process Formal Thought Process: Circumstantial Psychotic Thoughts and Behaviors: pt denied perceptual disturbances, non elicited - Suicidal Ideation Suicidal Ideation: No - Homicidal Ideation Homicidal Ideation: No Goal/Treatment Plan - Goal/Treatment Plan Need for Continued Stay: Discharge may exacerbated symptoms, Failed transitioning Progress Toward Problem(s) and Goals/Treatment Plan: continue with seroquel 300mg qhs neurontin 100mg tid prn for anxiety prazosin 0.1mg qhs for PTSD symptoms monitor for psychopharmacological effects and side effect profile CBT group and supportive therapy
[2018-01-16] MEDS: Pantoprazole 40 mg EC Tab PO SCH (09:50)
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
== END 2018-01-16 16:50 | disposition home or self-care (01) | DRG 430 ==
LOC: H.ER 23:22 → H.ERHOLD 01-09 01:56 → H.PSYCH 01-09 02:45
PROVIDERS: ADMIT Psychiatry & Neurology Psychiatry; ATTEND Psychiatry & Neurology Psychiatry
PROC: GZHZZZZ Group Psychotherapy (ICD-10-PCS; principal; 2018-01-09)
PROC: GZ58ZZZ Individual Psychotherapy, Cognitive-Behavioral (ICD-10-PCS; 2018-01-09)
DX: F31.81 Bipolar II disorder (principal); F41.0 Panic disorder [episodic paroxysmal anxiety]; F43.10 Post-traumatic stress disorder, unspecified; F60.3 Borderline personality disorder; R45.851 Suicidal ideations; D50.9 Iron deficiency anemia, unspecified; G89.29 Other chronic pain; M25.562 Pain in left knee; R10.13 Epigastric pain; Z62.810 Personal history of physical and sexual abuse in childhood; Z91.14 Patient's other noncompliance with medication regimen; Z91.19 Patient's noncompliance with other medical treatment and regimen; Z79.899 Other long term (current) drug therapy; Z98.84 Bariatric surgery status; Z91.010 Allergy to peanuts